=== PATIENT | female | born 1945 | race Two or more races ===

== ENCOUNTER → 2021-09-17 | Outpatient (CLI) | payer OTHER | END | disposition home or self-care (01) | LOC: XYW 13:57 | PROVIDERS: ATTEND Internal Medicine Pulmonary Disease | DX: I08.8 Other rheumatic multiple valve diseases (principal); I50.9 Heart failure, unspecified | CPT/HCPCS: 93306 ==

== ENCOUNTER 2025-02-15 09:47 | Inpatient (IN) | payer OTHER ==
[2025-02-15] VITALS (8 sets, daily range): BP systolic 106–142; BP diastolic 66–78; PULSE 77–99; RESP 14–32; TEMP 97.7–99; O2SAT 93–100
[~2025-02-15] VITALS: Ht 154.9 cm; Wt 86.0 kg
--- NOTE | 2025-02-15 10:19 | ECG ---
[facility] Test Date: 2025-02-15 Test Time: 09:59:54 Pat Name: PREET BANSAL Department: ED Room: 0290T Gender: F Administrative Services Specialist: JUSTYN : 1945 Requested By: MOISES ROBLES Order Number: [id number] Reading MD: Radu Torres Measurements Intervals [place] Rate: 113 P: 0 DC: 0 QRS: 17 QRSD: 101 T: 91 QT: 391 QTc: 537 Interpretive Statements Atrial fibrillation Anterior infarct, old Nonspecific T abnormalities, lateral leads Prolonged QT interval Electronically Signed On 02-16-2025 17:04:31 PST by Radu Torres Please click the below link to view image of tracing.
--- NOTE | 2025-02-15 10:24 | ED.PDOC ---
SOB-HPI HPI Comments This is a 79 year old female BRUNOA presenting to the ED with chief complaint of SOB. Patient reports that she has been experiencing SOB for the past 2 days with associated wheezing and worsening SOB at 8am. EMS relays that the patient was 82% O2 at RA, up to 92% on 15L Non-rebreather, and then up to 97% after a DuoNeb breathing treatment. EMS states patient had a 911 call last night as well for a fall while on blood thinner Xarelto, but no trauma was noted and patient was not transported. Patient denies any chest pain, cough, fever, or chills. Chief Complaint: Shortness of Breath Time Seen by MD: 10:22 Reviewed notes: Nurses Notes, Ultrasound Tester Notes, Medications, Allergies Information Source: Patient, Emergency Med Personnel Mode of Arrival: EMS Severity: Severe Timing: Days Duration: Since onset Context: At Rest PE Risk Factors: None History of: None Prehospital treatment: Breathing Tx, Oxygen Modifying Factors: Nothing Associated Signs and Symptoms: None Past Medical History PAST MEDICAL HISTORY: AFIB Surgical History: Denies all surgeries OIL FIELD RIG BUILDER History: Denies all OIL FIELD RIG BUILDER Hx Family History Family History: Reviewed,noncontributory to illness Social History Smoker: Non-Smoker Alcohol: Denies ETOH Use Drugs: Denies Drug Use Lives In: Home Constitutional: denies: chills, diaphoresis, fatigue, fever, malaise, sweats, weakness, others EENTM: denies: blurred vision, double vision, ear bleeding, ear discharge, ear drainage, ear pain, ear ringing, eye pain, eye redness, hearing loss, mouth pain, mouth swelling, nasal discharge, nose bleeding, nose congestion, nose pain, photophobia, tearing, throat pain, throat swelling, voice changes, others Respiratory: reports: shortness of breath, SOB with excertion, wheezing; denies: cough, hemoptysis, orthopnea, SOB at rest, stridor, others Cardiovascular: denies: chest pain, dizzy spells, diaphoresis, Dyspnea on exertion, edema, irregular heart beat, left arm pain, lightheadedness, palpitations, PND, syncope, others Gastrointestinal: denies: abdomen distended, abdominal pain, blood streaked bowels, constipated, diarrhea, dysphagia, difficulty swallowing, hematemesis, melena, nausea, poor appetite, poor fluid intake, rectal bleeding, rectal pain, vomiting, others Genitourinary: denies: abnormal vagina bleeding, burning, dyspareunia, dysuria, flank pain, frequency, hematuria, incontinence, pain, , vagina discharge, urgency, others Neurological: denies: dizziness, fainting, headache, left sided numbness, left sided weakness, numbness, paresthesia, pre-existing deficit, right sided numbness, right sided weakness, seizure, speech problems, tingling, tremors, weakness, others Musculoskeletal: denies: back pain, gout, joint pain, joint swelling, muscle pain, muscle stiffness, neck pain, others Integumetry: denies: bruises, change in color, change in hair/nails, dryness, laceration, lesions, lumps, rash, wounds, others Allergic/Immunocompromised: denies: Difficulty Healing, Frequent Infections, Hives, Itching, others Hematologic/Lymphatic: denies: anemia, blood clots, easy bleeding, easy bruising, swollen glands, others Endocrine: denies: excessive hunger, excessive sweating, excessive thirst, excessive urination, flushing, intolerance to cold, intolerance to heat, unexplained weight gain, unexplained weight loss, others Psychiatric: denies: anxiety, bipolar disorder, depression, hopeless, panic disorder, schizophrenia, sleepless, suicidal, others All Other Systems: Reviewed and Negative Physical Exam General Appearance: Normal, Severe Distress HEENT: Normal ENT Inspection, Pharynx Normal, TMs Normal Neck: Full Range of Motion, Non-Tender, Normal, Normal Inspection Respiratory: Chest Non-Tender, No Accessory Muscle Use, Respiratory Distress, Rhonchi Cardiovascular: No Edema, No JVD, No Murmur, No Gallop, Normal Peripheral Pulses, Regular Rate/Rhythm Breast Exam: Deferred Gastrointestinal: No Organomegaly, Non Tender, No Pulsatile Mass, Normal Bowel Sounds, Soft Genitalia: Deferred Pelvic: Deferred Rectal: Deferred Extremities: No calf tenderness, Normal capillary refill, Normal inspection, Normal range of motion, Non-tender, No pedal edema Musculoskeletal : Apperance: Normal Neurologic: Alert, armhole feller handstitching machine II-XII nml as Tested, No Motor Deficits, Normal Affect, Normal Mood, No Sensory Deficits Cerebellar Function: NOT DONE Reflexes: NOT DONE Skin: Dry, Normal Color, Warm Peripheral Pulses: 3+ Radial (R), 3+ Radial (L) Lymphatic: No Adenopathy EKG EKG : Cardiac Rhythm: Afib, Aflutter Was a procedure done? Was a procedure done?: No Differential Dx Differential Diagnosis: Anxiety, Asthma, Bronchitis, CHF, COPD X-Ray, Labs, Meds, VS Vital Signs Date Time Temp Pulse Resp B/P (MAP) Pulse Ox O2 Delivery O2 Flow Rate FiO2 02/15/25 10:43 125/59 02/15/25 10:01 113 02/15/25 09:49 98.9 101 20 152/82 97 98.9 Lab Test 02/15/25 10:29 Range/Units White Blood Count 5.3 4.4-10.8 10^3/uL Red Blood Count 3.51 L 4.0-5.20 10^6/uL Hemoglobin 12.3 12.2-16.2 g/dL Hematocrit 36.7 36.0-46.0 % Mean Corpuscular Volume 104.6 H 80.0-100.0 fL Mean Corpuscular Hemoglobin 35.1 H 28.0-32.0 pg Mean Corpuscular Hemoglobin Concent 33.5 32.0-36.0 g/dL Red Cell Distribution Width 15.4 H 11.8-14.3 % Platelet Count 152 140-450 10^3/uL Mean Platelet Volume 6.9 6.9-10.8 fL Neutrophils (%) (Auto) 74.3 37.0-80.0 % Lymphocytes (%) (Auto) 14.6 10.0-50.0 % Monocytes (%) (Auto) 9.3 0.0-12.0 % Eosinophils (%) (Auto) 0.9 0.0-7.0 % Basophils (%) (Auto) 0.9 0.0-2.0 % Neutrophils # (Auto) 3.9 1.6-8.6 10 ^3/uL Lymphocytes # (Auto) 0.8 0.4-5.4 10 ^3/uL Monocytes # (Auto) 0.5 0-1.3 10 ^3/uL Eosinophils # (Auto) 0 0-0.8 10 ^3/uL Basophils # (Auto) 0 0-0.2 10 ^3/uL Nucleated Red Blood Cells 0.0 % Sodium Level Pending Potassium Level Pending Chloride Level Pending Carbon Dioxide Level Pending Anion Gap Pending Blood Urea Nitrogen Pending Creatinine Pending Glomerular Filtration Rate Calc Pending BUN/Creatinine Ratio Pending Serum Glucose Pending Calcium Level Pending B-Type Natriuretic Peptide Pending Current Medications Medications (Trade) Dose Ordered Sig/Cindi Route Start Time Stop Time Status Last Admin Furosemide (Lasix Injection) 40 mg ONCE ONCE IV 02/15/25 10:15 02/15/25 10:16 DC 02/15/25 10:43 Patient alert. Answering questions. Complaining of shortness a breath. Placed on 15 L oxygen. Possible CHF. Was given Lasix. EKG does show atrial fibrillation. Placed on amiodarone. Explained to the patient. Continue monitoring. Time of 1ST Reevaluation: 11:20 Reevaluation 1ST: Unchanged Patient Education/Counseling: Diagnosis, Treatment Family Education/Counseling: No Family Present SEPSIS Sepsis Screen Date sepsis recognized/suspect: Feb 15, 2025 Time Sepsis recognized/suspect: 947 Recent Procedure: No On Antibiotic Therapy: No Respiratory Rate >20: No Heart Rate >90: Yes Temp<36 C (96.8 F) or >38.3 C: No SBP <90 or MAP <65 mmHG: No New Acute Mental Status Change: No Is the patient on CPAP, BIPAP,: No Physician Orders B-Type Natriuretic Peptide (02/15/25 10:13) Chest Portable (02/15/25 10:13) Urinalysis (02/15/25 10:13) Basic Metabolic Panel (02/15/25 10:13) Sodium Chloride 0.9% (02/15/25 10:15) Vital Signs Date Time Temp Pulse Resp B/P (MAP) Pulse Ox O2 Delivery O2 Flow Rate FiO2 02/15/25 10:43 125/59 02/15/25 10:01 113 02/15/25 09:49 98.9 101 20 152/82 97 98.9 Laboratory Tests Test 02/15/25 10:29 White Blood Count 5.3 10^3/uL (4.4-10.8) Medications Medications Dose Ordered Sig/Cindi Route Start Time Stop Time Status Last Admin Dose Admin Furosemide 40 mg ONCE ONCE IV 02/15/25 10:15 02/15/25 10:16 DC 02/15/25 10:43 Departure 1 Departure Time of Disposition: 10:54 Impression: Primary Impression: Congestive heart failure Qualified Codes: I50.43 - Acute on chronic combined systolic (congestive) and diastolic (congestive) heart failure Additional Impression: Atrial fibrillation Qualified Codes: I48.0 - Paroxysmal atrial fibrillation Disposition: ADMITTED INPATIENT Admit to: Med Surg Condition: Guarded Critical Care Note Critical Care Time?: Yes (90 min-critical care time only) Stability Stability form required: No Heart Score Heart Score: Heart Score Response (Comments) Value History Slightly Suspicious 0 EKG Normal 0 Age >65 2 Risk Factors >3 or Hx ASHD 2 Troponin Normal limit 0 Total 4 I personally scribed for MOISES ROBLES MD ([email or web address]) on 02/15/25 at 10:24. Electronically submitted by Mata Murdock ([email or web address]). MOISES ROBLES MD Feb 15, 2025 10:24
[2025-02-15] MEDS: FUROSEMIDE 40 MG/4 ML VIAL IV ONE (10:43)
[2025-02-15 10:46] LABS: Hematocrit 36.7 % (36.0-46.0); Hemoglobin 12.3 g/dL (12.2-16.2); Mean Corpuscular Hemoglobin 35.1 pg (28.0-32.0); Mean Corpuscular Volume 104.6 fL (80.0-100.0); Nucleated Red Blood Cells % 0.0 %
[2025-02-15 10:53] LABS: Chloride 102 mmol/L (98-107); Potassium 4.1 mmol/L (3.5-5.1)
[2025-02-15 10:54] LABS: Anion Gap 14 (5-15)
[2025-02-15 10:55] LABS: Calcium 9.3 mg/dL (8.7-10.4)
[2025-02-15 10:57] LABS: Carbon Dioxide 20 mmol/L (20-31); Sodium 136 mmol/L (136-145)
[2025-02-15 10:59] LABS: BUN/Creatinine Ratio 17.2 (10.0-20.0); Blood Urea Nitrogen 11 mg/dL (9-23)
[2025-02-15 11:00] LABS: Glucose 140 mg/dL (74-106)
--- NOTE | 2025-02-15 11:15 | DVH ---
EXAM: XY CHEST PORTABLE Indication: sob Technique: Single frontal view of the chest was obtained Comparison: None FINDINGS: Lines and Tubes: None Lungs: Moderate bilateral pleural effusions and pulmonary edema. Bibasilar opacities. No pneumothorax. Cardiomediastinal contours: Cardiomegaly. Atherosclerotic vascular calcifications of the thoracic aorta are noted. Bones: No acute osseous abnormality. IMPRESSION: Moderate bilateral pleural effusions and pulmonary edema. Bibasilar opacities. Cardiomegaly.
[2025-02-15] MEDS: IPRATROPIUM BROM 0.5 MG/2.5ML INH SOL NEB ONE (12:36)
[2025-02-15] MEDS: ALBUTEROL SULF 2.5 MG/0.5ML(0.5%) NEB SOLN NEB ONE (12:36)
[2025-02-15] MEDS: SODIUM CHLORIDE 0.9% 1,000 ML IV ONE (12:39)
[2025-02-15 13:03] LABS: Urine Protein, UAD Negative (Negative)
[2025-02-15] MEDS ORDERED: DOCUSATE SOD 100 MG CAP PO PRN (13:15)
[2025-02-15] MEDS ORDERED: MORPHINE SULFATE INJ 2 MG/ml SYRG IV PRN (13:15)
[2025-02-15] MEDS ORDERED: NITROGLYCERIN 0.4 MG SL TAB SL PRN (13:15)
[2025-02-15] MEDS ORDERED: ONDANSETRON HCL 4 MG/2 ML VIAL IV PRN (13:15)
[2025-02-15] MEDS ORDERED: MORPHINE SULFATE 4 MG/ML SYR/VIAL IV PRN (13:15)
[2025-02-15] MEDS ORDERED: HYDROcodone-ACET 5/325MG TAB PO PRN (13:15)
--- NOTE | 2025-02-15 13:43 | DVHHP2 ---
History of Present Illness Reason for Visit: Brought in by paramedics with the increasing shortness a breath 1 day History of Present Illness 79-year-old female with a known history of chronic AFib currently on beta marciano and Xarelto, hypertension, COPD/asthma, dyslipidemia, dementia who was brought in by paramedics with shortness of breaths for one day. Patient has stated that she was short of breath worsening since morning eventually she called paramedics the found are in O2 saturation 80s started on 15 L of facemask currently on nasal cannula. Patient does have known history of COPD/asthma as well as congestive heart failure. Patient's chest x-ray shows pulmonary venous congestion with a moderate bilateral pleural effusion. Patient is being admitted for acute CHF exacerbation as well as acute hypoxic respiratory failure secondary to acute CHF exacerbation. As well as acute COPD/asthma exacerbation. Patient denies any chest pain denies any palpitations. Cardiovascular: AFIB, CHF, HTN, hyperipidemia Pulmonary: Asthma, COPD UNDER GROUND MINER: Dementia Past Surgical History: Appendectomy, Hysterectomy, Total knee replacement Family History: None Smoke: No ALCOHOL: none Review of Systems Review of Systems Twelve review of system are negative besides mentioned above. Allergies: Coded Allergies: NO KNOWN ALLERGIES (Unverified , 02/15/25) Medications Current Medications Medications Dose Ordered Sig/Cindi Route Start Time Stop Time Status Last Admin Dose Admin Acetaminophen/ Hydrocodone Bitart 1 tab Q4HP PRN PO 02/15/25 13:15 UNV Ondansetron HCl 4 mg Q4HP PRN IV 02/15/25 13:15 UNV Docusate Sodium 100 mg BIDPRN PRN PO 02/15/25 13:15 UNV Acetaminophen 650 mg Q6HP PRN PO 02/15/25 13:15 UNV Morphine Sulfate 2 mg Q4HPRN PRN IV 02/15/25 13:15 UNV Nitroglycerin 0.4 mg Q5MINP PRN SL 02/15/25 13:15 UNV Morphine Sulfate 2 mg Q30M PRN IV 02/15/25 13:15 UNV Furosemide 40 mg BIDD IV 02/15/25 18:00 UNV Albuterol 2.5 mg Q4HWA NEB 02/15/25 14:00 UNV Ipratropium [place] 0.5 mg Q4HWA NEB 02/15/25 14:00 UNV Metoprolol Tartrate 25 mg BID PO 02/15/25 13:30 UNV Patient Own Medication 20 mg DAILY@DINNER PO 02/15/25 17:30 UNV Exam Vital Signs Vital Signs Date Time Temp Pulse Resp B/P (MAP) Pulse Ox O2 Delivery O2 Flow Rate FiO2 02/15/25 10:43 125/59 02/15/25 10:03 98 Simple Mask* 10 99 02/15/25 10:03 97.7 99 32 97.7 Exam HEENT pupils are reactive Neck is supple CV is S1-S2 irregular regular rate and rhythm Respiratory bilateral diminished breath sounds lung bases GI positive bowel sound Extremity nonpitting edema with a some heartburn and redness skin in the lower legs. Labs/Xrays Labs Test 02/15/25 11:38 02/15/25 10:29 Range/Units Urine Color Colorless Yellow Urine Clarity Clear Clear Urine pH 6.5 5.0-9.0 Urine Specific [place] 1.006 1.001-1.035 Urine Protein Negative Negative Urine Ketones Negative Negative Urine Blood Negative Negative /uL Urine Nitrite Negative Negative Urine Bilirubin Negative Negative Urine Urobilinogen Normal Negative mg/dL Urine Leukocyte Esterase Negative Negative /uL Urine RBC <1 0 - 4 /hpf Urine Microscopic WBC < 1 0-5 /HPF Urine Squamous Epithelial Cells Few <5 /hpf Urine Bacteria None seen None Seen /hpf Urine Glucose Normal Normal mg/dL White Blood Count 5.3 4.4-10.8 10^3/uL Red Blood Count 3.51 L 4.0-5.20 10^6/uL Hemoglobin 12.3 12.2-16.2 g/dL Hematocrit 36.7 36.0-46.0 % Mean Corpuscular Volume 104.6 H 80.0-100.0 fL Mean Corpuscular Hemoglobin 35.1 H 28.0-32.0 pg Mean Corpuscular Hemoglobin Concent 33.5 32.0-36.0 g/dL Red Cell Distribution Width 15.4 H 11.8-14.3 % Platelet Count 152 140-450 10^3/uL Mean Platelet Volume 6.9 6.9-10.8 fL Neutrophils (%) (Auto) 74.3 37.0-80.0 % Lymphocytes (%) (Auto) 14.6 10.0-50.0 % Monocytes (%) (Auto) 9.3 0.0-12.0 % Eosinophils (%) (Auto) 0.9 0.0-7.0 % Basophils (%) (Auto) 0.9 0.0-2.0 % Neutrophils # (Auto) 3.9 1.6-8.6 10 ^3/uL Lymphocytes # (Auto) 0.8 0.4-5.4 10 ^3/uL Monocytes # (Auto) 0.5 0-1.3 10 ^3/uL Eosinophils # (Auto) 0 0-0.8 10 ^3/uL Basophils # (Auto) 0 0-0.2 10 ^3/uL Nucleated Red Blood Cells 0.0 % Sodium Level 136 136-145 mmol/L Potassium Level 4.1 3.5-5.1 mmol/L Chloride Level 102 98-107 mmol/L Carbon Dioxide Level 20 20-31 mmol/L Anion Gap 14 5-15 Blood Urea Nitrogen 11 9-23 mg/dL Creatinine 0.64 0.550-1.02 mg/dL Glomerular Filtration Rate Calc 90 >90 mL/min BUN/Creatinine Ratio 17.2 10.0-20.0 Serum Glucose 140 H 74-106 mg/dL Calcium Level 9.3 8.7-10.4 mg/dL B-Type Natriuretic Peptide 312.36 0-100 pg/mL SEPSIS Sepsis Screen Date sepsis recognized/suspect: Feb 15, 2025 Time Sepsis recognized/suspect: 1000 Recent Procedure: No On Antibiotic Therapy: No Respiratory Rate >20: Yes Heart Rate >90: Yes Temp<36 C (96.8 F) or >38.3 C: No SBP <90 or MAP <65 mmHG: No New Acute Mental Status Change: No Is the patient on CPAP, BIPAP,: No Physician Orders Chest Portable (02/15/25 10:13) Sodium Chloride 0.9% (02/15/25 10:15) Code Status (02/15/25 13:13) Hydrocodone-Acet 5/325mg Tab ([place] (02/15/25 13:15) Ondansetron Hcl (Zofran) (02/15/25 13:15) Docusate Sodium Capsule (Colace Capsule) (02/15/25 13:15) Fall Risk Precautions In Place QSHIFT (02/15/25 13:13) Cardiac Diet-2gna,Lofat,Lochol (02/15/25 Lunch) Pt Request For Service (02/15/25 13:13) Echo 2d Mode Cardiac Dop (02/15/25 13:13) Condition: Stable (02/15/25 13:13) Acetaminophen Tablet (Tylenol Tablet) (02/15/25 13:15) Morphine Sulfate Injection (02/15/25 13:15) Nitroglycerin Sublingual (Ntrostat Subli (02/15/25 13:15) Morphine Sulfate Injection (02/15/25 13:15) Stat Ekg For Chest Pain (02/15/25 13:13) Notify Md Of Changes From Base (02/15/25 13:13) Radioactive Waste Disposal Dispatcher For 24 Hours (02/15/25 13:13) Emergency Dysrhythmia Protocol (02/15/25 13:13) Rhythm Strips Once Every Shift (02/15/25 13:13) Oxygen By Nasal Cannula (02/15/25 13:13) Furosemide Injection (Lasix Injection) (02/15/25 18:00) * Cardiology Consult (02/15/25 13:13) Albuterol Medneb (Ventolin Medneb) (02/15/25 14:00) Ipratropium Medneb (Atrovent Medneb) (02/15/25 14:00) * Radiologist Consult (02/15/25 13:13) * Neurology Consult (02/15/25 13:13) Daily Weight (02/15/25 13:13) Strict I & O QSHIFT (02/15/25 13:13) Basic Metabolic Panel (02/16/25 06:00) Complete Blood Count (02/16/25 06:00) Magnesium (02/16/25 06:00) Prothrombin Time W/ Inr (02/15/25 13:13) Metoprolol Tartrate Tablet (Lopressor Ta (02/15/25 13:30) (Nf) Xarelto (02/15/25 17:30) Admit (02/15/25 13:28) Methylprednisolone Sod Succ (Solu Medrol (02/15/25 22:00) Vital Signs Date Time Temp Pulse Resp B/P (MAP) Pulse Ox O2 Delivery O2 Flow Rate FiO2 02/15/25 10:43 125/59 02/15/25 10:03 98 Simple Mask* 10 99 02/15/25 10:03 97.7 99 32 106/66 (79) 98 97.7 02/15/25 10:03 99 32 98 Simple Mask* 10 99 02/15/25 10:01 113 02/15/25 09:49 98.9 101 20 152/82 97 98.9 Laboratory Tests Test 02/15/25 10:29 White Blood Count 5.3 10^3/uL (4.4-10.8) Medications Medications Dose Ordered Sig/Cindi Route Start Time Stop Time Status Last Admin Dose Admin Albuterol 5 mg ONCE ONCE NEB 02/15/25 12:15 02/15/25 12:16 DC 02/15/25 12:36 5 MG Furosemide 40 mg ONCE ONCE IV 02/15/25 10:15 02/15/25 10:16 DC 02/15/25 10:43 40 MG Ipratropium [place] 0.5 mg ONCE ONCE NEB 02/15/25 12:15 02/15/25 12:16 DC 02/15/25 12:36 0.5 MG Assessment/Plan Assessment/Plan 79-year-old female with a known history of chronic AFib, congestive heart failure, COPD/asthma, hypertension, dementia presented to the hospital with the increasing shortness of breaths found to have 1. Acute hypoxic respiratory failure secondary to acute CHF exacerbation as well as acute COPD/asthma exacerbation 2. Acute CHF exacerbation unspecified 3. Acute COPD/asthma exacerbation 4. AFib with rate controlled 5. Hypertension 6. Essential tremors 7. Alzheimer dementia -admit to telemetry, O2 supplementation, med nebs, Solu-Medrol, IV diuretics daily weights strict I&Os -2D echo cardiology consultation we will obtain Neurology consult for tremors. Plan discussed with: Patient My Orders Orders - DEEJAY PEREZ MD Procedure Category Date Status Time Code Status CODE 02/15/25 Transmitted 13:13 Hydrocodone-Acet PHA 02/15/25 Logged 5/325mg Tab ([place] 13:15 Ondansetron Hcl PHA 02/15/25 Logged (Zofran) 13:15 Docusate Sodium PHA 02/15/25 Logged Capsule (Colace 13:15 Fall Risk Precautions NADEEM 02/15/[address] 13:13 Cardiac DIET 02/15/25 Transmitted Diet-2gna,Lofat,Lochol Lunch Pt Request For Service PT 02/15/25 Logged 13:13 Echo 2d Mode Cardiac US 02/15/25 Logged DOP 13:13 Condition: Stable NADEEM 02/15/25 In Process 13:13 Acetaminophen Tablet PHA 02/15/25 Logged (Tylenol Tablet) 13:15 Morphine Sulfate PHA 02/15/25 Logged Injection 13:15 Nitroglycerin PHA 02/15/25 Logged Sublingual (Ntrostat 13:15 Morphine Sulfate PHA 02/15/25 Logged Injection 13:15 Stat Ekg For Chest NADEEM 02/15/25 In Process Pain 13:13 Notify Md Of Changes [facility] 02/15/25 In Process From Base 13:13 Radioactive Waste Disposal Dispatcher For [facility] 02/15/25 In Process 24 Hours 13:13 Emergency Dysrhythmia [facility] 02/15/25 In Process Protocol 13:13 Rhythm Strips Once [facility] 02/15/25 In Process Every Shift 13:13 Oxygen By Nasal RT 02/15/25 Transmitted Cannula 13:13 Furosemide Injection PHA 02/15/25 Logged (Lasix Injection) 18:00 * Cardiology Consult CONS 02/15/25 Transmitted 13:13 Albuterol Medneb PHA 02/15/25 Logged (Ventolin Medneb) 14:00 Ipratropium Medneb PHA 02/15/25 Logged (Atrovent Medneb) 14:00 * Radiologist Consult CONS 02/15/25 Transmitted 13:13 * Neurology Consult CONS 02/15/25 Transmitted 13:13 Daily Weight NADEEM 02/15/25 In Process 13:13 Strict I & O [place] 02/15/25 In Process 13:13 Basic Metabolic Panel LAB 02/16/25 Verified 06:00 Complete Blood Count LAB 02/16/25 Verified 06:00 Magnesium LAB 02/16/25 Verified 06:00 Prothrombin Time W/ LAB 02/15/25 In Process INR 13:13 Metoprolol Tartrate PHA 02/15/25 Logged Tablet (Lopressor Ta 13:30 (Nf) Xarelto PHA 02/15/25 Logged 17:30 Admit ADMIT 02/15/25 Transmitted 13:28 Methylprednisolone PHA 02/15/25 Logged Sod Succ (Solu Medrol 22:00 Problem List: (1) Congestive heart failure (2) Atrial fibrillation Date of Service: Feb 15, 2025 Billing Provider: DEEJAY PEREZ MD Common Visit Codes: NOT BILLABLE DEEJAY PEREZ MD Feb 15, 2025 13:43
[2025-02-15] MEDS: IPRATROPIUM BROM 0.5 MG/2.5ML INH SOL NEB SCH (13:55)
[2025-02-15] MEDS: ALBUTEROL SULF 2.5 MG/0.5ML(0.5%) NEB SOLN NEB SCH (13:55)
[2025-02-15] MEDS: methylPREDNISolone SOD SUCC 40 MG/ML VL IV SCH (14:20)
--- NOTE | 2025-02-15 14:20 | DVH ---
US CHEST ULTRASOUND, HISTORY: evaluate for possible thoracentesis, bilateral COMPARISON(S): XY CHEST PORTABLE on DOS: 02/15/25 TECHNICAL DATA: Transverse and longitudinal images are obtained of the chest. FINDING: IMPRESSION(S): Small (possibly moderate) bilateral pleural effusion, equal on both sides.
[2025-02-15] MEDS: METOPROLOL TARTRATE 25 MG TAB PO SCH (14:21)
[2025-02-15 14:31] LABS: INR 1.63 (0.9-1.15); Prothrombin Time 16.5 sec (9.3-11.8)
[2025-02-15] MEDS: RIVAROXABAN 20 MG TAB PO SCH (17:05)
[2025-02-15] MEDS: FUROSEMIDE 40 MG/4 ML VIAL IV SCH (19:06)
[2025-02-15] MEDS: ACETAMINOPHEN 325 MG TAB PO PRN (21:13)
[2025-02-16] VITALS (15 sets, daily range): BP systolic 112–143; BP diastolic 65–79; PULSE 69–104; RESP 16–20; TEMP 97.5–98.7; O2SAT 91–99
[2025-02-16 05:47] LABS: Hematocrit 35.3 % (36.0-46.0); Hemoglobin 12.1 g/dL (12.2-16.2); Mean Corpuscular Hemoglobin 35.1 pg (28.0-32.0); Mean Corpuscular Volume 102.6 fL (80.0-100.0); Nucleated Red Blood Cells % 0.0 %
[2025-02-16 05:51] LABS: Chloride 100 mmol/L (98-107); Sodium 138 mmol/L (136-145)
[2025-02-16 05:52] LABS: Anion Gap 13 (5-15); Calcium 9.4 mg/dL (8.7-10.4); Carbon Dioxide 25 mmol/L (20-31)
[2025-02-16 05:55] LABS: Potassium 3.4 mmol/L (3.5-5.1)
[2025-02-16 05:57] LABS: BUN/Creatinine Ratio 10.4 (10.0-20.0)
[2025-02-16 05:58] LABS: Blood Urea Nitrogen 7 mg/dL (9-23); Glucose 176 mg/dL (74-106); Magnesium 1.9 mg/dL (1.6-2.6)
--- NOTE | 2025-02-16 12:54 | DVHINCON2 ---
Date Seen: Feb 16, 2025 Referring Physician MD Prema Reason for Consultation Acute CHF exacerbation History of Present Illness This is a 79-year-old female patient who presents to emergency room with chief complaint of worsening shortness of breath for 2 hours prior to emergency room arrival. Cardiology has been consulted at this time for CHF evaluation. Initial twelve lead electrocardiogram found in patient's hard chart reveals atrial fibrillation with artifact in multiple leads. compliance monitor at time of assessment reveals atrial fibrillation with controlled rate. At the time of assessment, the patient denies any cardiac symptoms such as chest pain, palpitations, shortness of breath, or dizziness. Significant past medical history includes hypertension, dyslipidemia, atrial fibrillation (on Xarelto), and dementia. The patient reports undergoing a coronary angiogram approximately five years ago at [facility] and states no catheter based intervention was deemed necessary at that time. 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 Past Medical History Past medical history reviewed. No other significant than mentioned above. Past Surgical History Appendectomy Family History: Colon cancer G8 FATHER Hypertension 19 CHILD 19 CHILD 19 CHILD Family History Family history reviewed. Social History The patient denies any tobacco use or illicit drug use Patient admits to daily alcohol. States she drinks 3-4 glasses of bourbon per day Allergies: Coded Allergies: NO KNOWN ALLERGIES (Unverified , 02/15/25) Home Meds Home medications reviewed. Current Medications Current Medications Medications (Trade) Dose Ordered Sig/Cindi Route PRN Reason Start Time Stop Time Status Last Admin Acetaminophen/ Hydrocodone Bitart ([place] 5/325MG Tab) 1 tab Q4HP PRN PO MODERATE PAIN (4-6 PAIN SCALE) 02/15/25 13:15 Ondansetron HCl (Zofran) 4 mg Q4HP PRN IV NAUSEA / VOMITING 02/15/25 13:15 Docusate Sodium (Colace Capsule) 100 mg BIDPRN PRN PO FOR CONSTIPATION 02/15/25 13:15 Acetaminophen (Tylenol Tablet) 650 mg Q6HP PRN PO PAIN SCALE 1-3 OR TEMP>100.4 02/15/25 13:15 02/15/25 21:13 Morphine Sulfate 2 mg Q4HPRN PRN IV SEVERE PAIN (7-10 PAIN SCALE) 02/15/25 13:15 Nitroglycerin (Ntrostat Sublingual) 0.4 mg Q5MINP PRN SL FOR CHEST PAIN 02/15/25 13:15 Morphine Sulfate 2 mg Q30M PRN IV FOR CHEST PAIN 02/15/25 13:15 Furosemide (Lasix Injection) 40 mg BIDD IV 02/15/25 18:00 02/16/25 06:04 Albuterol (Ventolin Medneb) 2.5 mg Q4HWA [facility] 02/15/25 14:00 02/16/25 10:39 Ipratropium [place] (Atrovent Medneb) 0.5 mg Q4HWA [facility] 02/15/25 14:00 02/16/25 10:40 Metoprolol Tartrate (Lopressor Tablet) 25 mg BID PO 02/15/25 13:30 02/16/25 09:35 Rivaroxaban (Xarelto Tablet) 20 mg DAILY@DINNER PO 02/15/25 17:30 02/15/25 17:05 Methylprednisolone Sodium Succinate (Solu Medrol) 40 mg BID IV 02/15/25 13:38 02/16/25 09:35 Review of Systems Constitutional: No symptom reported Ears, Nose, & Throat: No symptom reported Eyes: No symptom reported Neurological: No symptoms reported Pulmonary/Respiratory: Shortness of breath Cardiovascular: No symptom reported Gastrointestinal: No symptom reported Genitourinary: No symptom reported Musculoskeletal: No symptom reported Skin: No symptom reported Psychiatric: No symptom reported Endocrine: No symptom reported Hematologic/Lymphatic: No symptom reported Vital Signs Vital Signs Date Time Temp Pulse Resp B/P (MAP) Pulse Ox O2 Delivery O2 Flow Rate FiO2 02/16/25 10:44 85 18 99 02/16/25 09:35 124/65 02/16/25 09:00 98.1 98.1 02/16/25 08:20 Nasal Cannula* 3 32 Physical Exam General Appearance: Cooperative. Well-developed. Well-nourished. No acute distress. Pulmonary/Respiratory: Clear, bilateral breaths sounds. Cardiovascular/Chest: Irregularly irregular rate and rhythm Peripheral Pulses: 2+ Radial (R). 2+ Radial (L). 2+ Pedal (R). 2+ Pedal (L) Abdominal Exam: Normal bowel sounds. Ankle Exam: 2+ pitting edema Lower extremities: 2+ pitting edema Neuro/Mental Status: A/OX4, coherent. Thoughts/Psych: Normal thought pattern. Appropriate mood and affect. Good judgment and insight. Appearance: No acute distress. Skin Exam: Normal inspection. Normal color. Warm and dry. Labs/Diagnostic Data Labs Test 02/16/25 04:58 02/15/25 14:07 02/15/25 11:38 02/15/25 10:29 Range/Units White Blood Count 2.0 L 4.4-10.8 10^3/uL Red Blood Count 3.44 L 4.0-5.20 10^6/uL Hemoglobin 12.1 L 12.2-16.2 g/dL Hematocrit 35.3 L 36.0-46.0 % Mean Corpuscular Volume 102.6 H 80.0-100.0 fL Mean Corpuscular Hemoglobin 35.1 H 28.0-32.0 pg Mean Corpuscular Hemoglobin Concent 34.2 32.0-36.0 g/dL Red Cell Distribution Width 15.3 H 11.8-14.3 % Platelet Count 151 140-450 10^3/uL Mean Platelet Volume 7.2 6.9-10.8 fL Neutrophils (%) (Auto) 88.6 H 37.0-80.0 % Lymphocytes (%) (Auto) 10.2 10.0-50.0 % Monocytes (%) (Auto) 1.1 0.0-12.0 % Eosinophils (%) (Auto) 0.0 0.0-7.0 % Basophils (%) (Auto) 0.1 0.0-2.0 % Neutrophils # (Auto) 1.8 1.6-8.6 10 ^3/uL Lymphocytes # (Auto) 0.2 L 0.4-5.4 10 ^3/uL Monocytes # (Auto) 0 0-1.3 10 ^3/uL Eosinophils # (Auto) 0 0-0.8 10 ^3/uL Basophils # (Auto) 0 0-0.2 10 ^3/uL Nucleated Red Blood Cells 0.0 % Sodium Level 138 136-145 mmol/L Potassium Level 3.4 L 3.5-5.1 mmol/L Chloride Level 100 98-107 mmol/L Carbon Dioxide Level 25 20-31 mmol/L Anion Gap 13 5-15 Blood Urea Nitrogen 7 L 9-23 mg/dL Creatinine 0.67 0.550-1.02 mg/dL Glomerular Filtration Rate Calc 89 >90 mL/min BUN/Creatinine Ratio 10.4 10.0-20.0 Serum Glucose 176 H 74-106 mg/dL Calcium Level 9.4 8.7-10.4 mg/dL Magnesium Level 1.9 1.6-2.6 mg/dL Prothrombin Time 16.5 H 9.3-11.8 sec Prothrombin Time INR 1.63 H 0.9-1.15 Urine Color Colorless Yellow Urine Clarity Clear Clear Urine pH 6.5 5.0-9.0 Urine Specific [place] 1.006 1.001-1.035 Urine Protein Negative Negative Urine Ketones Negative Negative Urine Blood Negative Negative /uL Urine Nitrite Negative Negative Urine Bilirubin Negative Negative Urine Urobilinogen Normal Negative mg/dL Urine Leukocyte Esterase Negative Negative /uL Urine RBC <1 0 - 4 /hpf Urine Microscopic WBC < 1 0-5 /HPF Urine Squamous Epithelial Cells Few <5 /hpf Urine Bacteria None seen None Seen /hpf Urine Glucose Normal Normal mg/dL B-Type Natriuretic Peptide 312.36 0-100 pg/mL Assessment Rule out structural heart disease Hypertension Dyslipidemia Atrial fibrillation, unspecified (on Xarelto) Acute hypoxic respiratory failure secondary to COPD/asthma exacerbation Bilateral pleural effusions Hypokalemia Dementia Alcohol abuse Obese Plan/Recommendation We will continue with the following plan/recommendations (): * Transthoracic echocardiogram to evaluate cardiac function * [place] heart failure diagnostic criteria: Positive * Strict intake and output, daily weights, maintain fluid restriction * Diuresis as tolerated * [id number] VASc score: * Continue DOAC therapy with Xarelto * Continue beta-marciano for rate control * Avoid antiarrhythmic agent as atrial fibrillation is likely persistent * Monitor and replete electrolytes as needed, keep potassium greater than four and magnesium greater than two * Continuous telemetry monitoring Thank you for allowing us to care for this patient. Please call with any questions or concerns. Critical care time spent: 44 minutes This medical document was created using an electronic medical record system with voice recognition software and computerized dictation system. Although this document has been carefully reviewed, there might still be some phonetic and typographical errors. Occasional wrong-word or ``sound-alike substitutions may have occurred due to the inherent limitations of voice recognition software. These areas are purely typographical due to imperfections of the software programs and do not reflect any compromise in the patient's medical care. Please read the chart carefully and recognize, using context, where these substitutions have occurred. Plan discussed with: Patient NYHA Physical activity limitations: NA Date of Service: Feb 16, 2025 Billing Provider: DALLIN HORN Cardiology Common Codes: 98578-KBUAJBD INP/OBS CARE (High) Cardiology Consultation Codes: 85262-OEMCGIHOC CONSULT <45MIN DALLIN HORN Feb 16, 2025 12:54
[2025-02-16] MEDS: POTASSIUM CHL 20 Meq TABLET PO ONE (13:44)
[2025-02-16 14:32] LABS: Triglycerides 67 mg/dL (< 150)
--- NOTE | 2025-02-16 14:33 | DVHPN2 ---
Subjective Patient has stated that she has 75% better, denies any shortness of breaths currently on room air. 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 Medications Current Medications Medications Dose Ordered Sig/Cindi Route Start Time Stop Time Status Last Admin Dose Admin Acetaminophen/ Hydrocodone Bitart 1 tab Q4HP PRN PO 02/15/25 13:15 Ondansetron HCl 4 mg Q4HP PRN IV 02/15/25 13:15 Docusate Sodium 100 mg BIDPRN PRN PO 02/15/25 13:15 Acetaminophen 650 mg Q6HP PRN PO 02/15/25 13:15 02/15/25 21:13 650 MG Morphine Sulfate 2 mg Q4HPRN PRN IV 02/15/25 13:15 Nitroglycerin 0.4 mg Q5MINP PRN SL 02/15/25 13:15 Morphine Sulfate 2 mg Q30M PRN IV 02/15/25 13:15 Furosemide 40 mg BIDD IV 02/15/25 18:00 02/16/25 06:04 40 MG Albuterol 2.5 mg Q4HWA NEB 02/15/25 14:00 02/16/25 10:39 2.5 MG Ipratropium [place] 0.5 mg Q4HWA NEB 02/15/25 14:00 02/16/25 10:40 0.5 MG Metoprolol Tartrate 25 mg BID PO 02/15/25 13:30 02/16/25 09:35 25 MG Rivaroxaban 20 mg DAILY@DINNER PO 02/15/25 17:30 02/15/25 17:05 20 MG Methylprednisolone Sodium Succinate 40 mg BID IV 02/15/25 13:38 02/16/25 09:35 40 MG Laboratory Results Laboratory Tests 02/16/25 04:58 Chemistry Test 02/16/25 04:58 Calcium Level 9.4 mg/dL (8.7-10.4) Magnesium Level 1.9 mg/dL (1.6-2.6) Lipid panel Test 02/16/25 04:58 Cholesterol Level Pending HDL Cholesterol Pending Triglycerides Level Pending LFT Test 02/16/25 04:58 Alanine Aminotransferase (ALT) Pending Aspartate Amino Transferase (AST) Pending HgA1c, TSH Test 02/16/25 04:58 Hemoglobin A1c Pending Thyroid Stimulating Hormone (TSH) Pending Urinalysis Test 02/15/25 11:38 Urine Color Colorless (Yellow) Urine Clarity Clear (Clear) Urine pH 6.5 (5.0-9.0) Urine Specific [place] 1.006 (1.001-1.035) Urine Protein Negative (Negative) Urine Ketones Negative (Negative) Urine Blood Negative /uL (Negative) Urine Nitrite Negative (Negative) Urine Bilirubin Negative (Negative) Urine Urobilinogen Normal mg/dL (Negative) Urine Leukocyte Esterase Negative /uL (Negative) Urine RBC <1 /hpf (0 - 4) Urine Microscopic WBC < 1 /HPF (0-5) Urine Squamous Epithelial Cells Few /hpf (<5) Urine Bacteria None seen /hpf (None Seen) Urine Glucose Normal mg/dL (Normal) Assessment/Plan Assessment/Plan 79-year-old female with a known history of chronic AFib, congestive heart failure, COPD/asthma, hypertension, dementia presented to the hospital with the increasing shortness of breaths found to have 1. Acute hypoxic respiratory failure secondary to acute CHF exacerbation as well as acute COPD/asthma exacerbation 2. Acute CHF exacerbation unspecified, follow up 2D echo 3. Acute COPD/asthma exacerbation 4. AFib with rate controlled 5. Hypertension 6. Essential tremors 7. Alzheimer dementia -admit t-O2 supplementation, med nebs, Solu-Medrol, IV diuretics daily weights strict I&Os -2D echo cardiology consultation appreciated. -home health home safety evaluation upon discharge, physical therapy evaluation pending discharge. Plan discussed with: Patient, Daughter Date of Service: Feb 16, 2025 Billing Provider: DEEJAY PEREZ MD Common Visit Codes: NOT BILLABLE DEEJAY PEREZ MD Feb 16, 2025 14:33
[2025-02-16 14:34] LABS: Cholesterol 136 mg/dL (< 200)
[2025-02-16 14:36] LABS: HDL Cholesterol 89 mg/dL (40-59)
[2025-02-16 14:41] LABS: Alanine Aminotransferase 26 U/L (7-40)
--- NOTE | 2025-02-16 17:12 | DVHSR ---
APPROVED REPORT EXAM: Two-dimensional and M-mode echocardiogram with Doppler and color Doppler. Blood Pressure: 125/29 mmHg INDICATION Dyspnea Heart Failure RISK FACTORS Height: 5'5", Weight: 185 DIMENSIONS LVDd 4.5 (3.8-5.7cm) LA (2D) 4.6 (1.9-4.0cm) Aortic Root 3.2 (2.0-3.7cm) LVDs 2.6 (2.5-4.0cm) LA (MM) (1.9-4.0cm) Aortic Cusp Exc 1.5 (1.5-2.0cm) EF (%) 73.0 (55-70%) Rt. Atrium 5.3 (1.9-4.0cm) Asc. Aorta 4.3 cm IVSd 0.7 (0.7-1.1cm) RV (D) (1.8-2.4cm) Mitral Valve Mitral Mitral Stenosis E wave 1.34m/s MV Mean GR. mmHg E/A ratio 0.0 2D MVA cm2 Aortic Valve Aortic Valve Aortic Stenosis V1 1.32m/s AO Mean GR. 9mmHg V2 2.09m/s AO Peak GR. 17mmHg LVOT Diameter 1.8 (1.8-2.4cm) Doppler VICKI 1.61cm2 AI P 1/2 Time 478.87ms Pulmonic Valve V2 1.18m/s Tricuspid Valve TR Velocity 3.28m/s RVSP 51mmHg Other Information Quality : Technically Limited Rhythm : Conclusion LVEF normal at 60-65% Right ventricle size and function normal Moderate left atrial dilation Severely dilated right atrium Moderate tricuspid regurgitation Moderate pulmonary hypertension, 55-60mmgh Mild aortic stenosis Mild anterior pericardial effusion large Left pleural effusion
[2025-02-17] VITALS (11 sets, daily range): BP systolic 120–128; BP diastolic 53–74; PULSE 69–87; RESP 16–20; TEMP 97.5–98.7; O2SAT 90–100
[2025-02-17 05:58] LABS: Hemoglobin 11.6 g/dL (12.2-16.2); Mean Corpuscular Hemoglobin 34.5 pg (28.0-32.0); Nucleated Red Blood Cells % 0.1 %
[2025-02-17 06:00] LABS: Hematocrit 34.7 % (36.0-46.0); Mean Corpuscular Volume 103.3 fL (80.0-100.0)
[2025-02-17 06:13] LABS: Calcium 9.6 mg/dL (8.7-10.4); Chloride 101 mmol/L (98-107); Potassium 3.6 mmol/L (3.5-5.1); Sodium 138 mmol/L (136-145)
[2025-02-17 06:14] LABS: Anion Gap 10 (5-15); Carbon Dioxide 27 mmol/L (20-31)
[2025-02-17 06:19] LABS: BUN/Creatinine Ratio 19.5 (10.0-20.0); Blood Urea Nitrogen 15 mg/dL (9-23); Glucose 148 mg/dL (74-106)
[2025-02-17 06:20] LABS: Magnesium 1.8 mg/dL (1.6-2.6)
[2025-02-17] MEDS: FUROSEMIDE 40 MG/4 ML VIAL IV SCH (09:34)
[2025-02-17] MEDS ORDERED: ALBUAER3 IN (14:06)
[2025-02-17] MEDS ORDERED: METH4PAK PO (14:06)
[2025-02-17] MEDS ORDERED: ALB5IS NEB (14:06)
[2025-02-17] MEDS ORDERED: IPR002IS NEB (14:06)
--- NOTE | 2025-02-17 14:17 | DVHDS2 ---
Discharge Summary Date of Admission Feb 15, 2025 at 13:13 Date of Discharge: Feb 17, 2025 Labs/Diagnostic Data: Laboratory Results Test 02/17/25 05:27 02/16/25 04:58 02/15/25 14:07 02/15/25 11:38 White Blood Count 5.3 10^3/uL (4.4-10.8) Red Blood Count 3.36 10^6/uL (4.0-5.20) Hemoglobin 11.6 g/dL (12.2-16.2) Hematocrit 34.7 % (36.0-46.0) Mean Corpuscular Volume 103.3 fL (80.0-100.0) Mean Corpuscular Hemoglobin 34.5 pg (28.0-32.0) Mean Corpuscular Hemoglobin Concent 33.4 g/dL (32.0-36.0) Red Cell Distribution Width 15.6 % (11.8-14.3) Platelet Count 151 10^3/uL (140-450) Mean Platelet Volume 7.3 fL (6.9-10.8) Neutrophils (%) (Auto) 91.5 % (37.0-80.0) Lymphocytes (%) (Auto) 5.6 % (10.0-50.0) Monocytes (%) (Auto) 2.9 % (0.0-12.0) Eosinophils (%) (Auto) 0.0 % (0.0-7.0) Basophils (%) (Auto) 0.0 % (0.0-2.0) Neutrophils # (Auto) 4.8 10 ^3/uL (1.6-8.6) Lymphocytes # (Auto) 0.3 10 ^3/uL (0.4-5.4) Monocytes # (Auto) 0.2 10 ^3/uL (0-1.3) Eosinophils # (Auto) 0 10 ^3/uL (0-0.8) Basophils # (Auto) 0 10 ^3/uL (0-0.2) Nucleated Red Blood Cells 0.1 % Sodium Level 138 mmol/L (136-145) Potassium Level 3.6 mmol/L (3.5-5.1) Chloride Level 101 mmol/L (98-107) Carbon Dioxide Level 27 mmol/L (20-31) Anion Gap 10 (5-15) Blood Urea Nitrogen 15 mg/dL (9-23) Creatinine 0.77 mg/dL (0.550-1.02) Glomerular Filtration Rate Calc 79 mL/min (>90) BUN/Creatinine Ratio 19.5 (10.0-20.0) Serum Glucose 148 mg/dL (74-106) Calcium Level 9.6 mg/dL (8.7-10.4) Magnesium Level 1.8 mg/dL (1.6-2.6) Hemoglobin A1c 4.7 % A1C (<5.7) Aspartate Amino Transferase (AST) 51 U/L (13-40) Alanine Aminotransferase (ALT) 26 U/L (7-40) Triglycerides Level 67 mg/dL (< 150) Cholesterol Level 136 mg/dL (< 200) LDL Cholesterol 31 mg/dL (< 100) HDL Cholesterol 89 mg/dL (40-59) Thyroid Stimulating Hormone (TSH) 0.74 uIU/mL (0.55-4.78) Prothrombin Time 16.5 sec (9.3-11.8) Prothrombin Time INR 1.63 (0.9-1.15) Urine Color Colorless (Yellow) Urine Clarity Clear (Clear) Urine pH 6.5 (5.0-9.0) Urine Specific [place] 1.006 (1.001-1.035) Urine Protein Negative (Negative) Urine Ketones Negative (Negative) Urine Blood Negative /uL (Negative) Urine Nitrite Negative (Negative) Urine Bilirubin Negative (Negative) Urine Urobilinogen Normal mg/dL (Negative) Urine Leukocyte Esterase Negative /uL (Negative) Urine RBC <1 /hpf (0 - 4) Urine Microscopic WBC < 1 /HPF (0-5) Urine Squamous Epithelial Cells Few /hpf (<5) Urine Bacteria None seen /hpf (None Seen) Urine Glucose Normal mg/dL (Normal) Test 02/15/25 10:29 B-Type Natriuretic Peptide 312.36 pg/mL (0-100) Other Laboratory Tests 02/17/25 05:27 Brief Hx & Hospital Course: 79-year-old female with a known history of chronic AFib, congestive heart failure, COPD/asthma, hypertension, dementia presented to the hospital with the increasing shortness of breaths found to have acute hypoxic respiratory failure suspected secondary to acute COPD exacerbation. Patient denies any known history of congestive heart failure. Patient was seen by Cardiology 2D echo was done which showed ejection fraction of 60% but there was moderate pulmonary hypertension. Patient was eventually given IV diuretics, med nebs Solu-Medrol. Patient is currently stable to be discharged she is saturating more than 92% on room air and requesting to go home as well as her daughter agrees to the same plan. Patient is being discharged under stable condition on a rescue inhaler, she already has nebulizer at home but we will give her breathing treatment for home also Medrol Dosepak. Patient is being discharged under stable condition. Patient has essential tremors were suspected secondary to breathing treatment currently resolved. Condition at Discharge: Stable Final Diagnosis/Problems List 79-year-old female with a known history of chronic AFib, congestive heart failure, COPD/asthma, hypertension, dementia presented to the hospital with the increasing shortness of breaths found to have 1. Acute hypoxic respiratory failure secondary to acute CHF exacerbation as well as acute COPD/asthma exacerbation 2. Acute CHF exacerbation with diastolic dysfunction currently compensated 3. Acute COPD/asthma exacerbation , improved 4. AFib with rate controlled 5. Hypertension 6. Essential tremors 7. Alzheimer dementia 8. Pulmonary hypertension 9. Mild bilateral pleural effusion, not amenable for thoracentesis as per intervention Radiology. Discharge Disposition: Home with Health Services SNF Discharge Will this Physician continue t: No Discharge Instruct/Medications Diet: Cardiac 2g Na,low cholest Activity: No Restrictions, As Tolerated Follow Up/Referral: Please follow up with the PCP in one week Follow up with the Cardiology in 1-2 weeks Follow up with the Pulmonary in 1-2 weeks Medications: Resume home medications, new prescription as prescribed. New Medications: Albuterol Sulfate (Ventolin Mdi) 90 Mcg Ih 90 MCG IN Q4HP PRN, #1 INH Methylprednisolone (Medrol Dosepak) 4 Mg Thomas 4 MG PO UD, #21 TAB UAD Albuterol Sulfate (Ventolin) 2.5 Mg/0.5 Ml Nb 2.5 MG NEB Q4HWA, #60 INH Ipratropium [place] (Ipratropium [place]) 0.02 % Sunitha 0.5 MG NEB Q4HWA, #60 ML Scheduled Albuterol Sulfate (Ventolin), 2.5 MG NEB Q4HWA Ipratropium [place] (Ipratropium [place]), 0.5 MG NEB Q4HWA Methylprednisolone (Medrol Dosepak), 4 MG PO UD Scheduled PRN Albuterol Sulfate (Ventolin Mdi), 90 MCG IN Q4HP PRN Discharge Statement: "Patient was advised to return to the ER or call 911 if any headaches, dizziness, shortness of breath, chest pain, abdominal pain, bleeding, fevers, or worsening of medical condition. Patient was counseled about treatment plan, medications, possible side effects, patientverbalized understanding. All questions were answered to the best of my ability. This discharge took greater then 30 minutes in planning, reviewing documentation, counseling the patient, and discussing with other team members." ASSESSMENT ASSESSMENT Assessment 79-year-old female with a known history of chronic AFib, congestive heart failure, COPD/asthma, hypertension, dementia presented to the hospital with the increasing shortness of breaths found to have 1. Acute hypoxic respiratory failure secondary to acute CHF exacerbation as well as acute COPD/asthma exacerbation 2. Acute CHF exacerbation with diastolic dysfunction currently compensated 3. Acute COPD/asthma exacerbation , improved 4. AFib with rate controlled 5. Hypertension 6. Essential tremors 7. Alzheimer dementia Date of Service: Feb 17, 2025 Billing Provider: DEEJAY PEREZ MD Common Visit Codes: NOT BILLABLE DEEJAY PEREZ MD Feb 17, 2025 14:17
== END 2025-02-17 16:25 | disposition home or self-care (01) | DRG 291 ==
LOC: ER 09:47 → EDBD 09:47 → OVERFLOW 13:13 → TELE-WESTW 17:23
PROVIDERS: ADMIT Internal Medicine; ATTEND Internal Medicine
DX: I11.0 Hypertensive heart disease with heart failure (principal); I50.31 Acute diastolic (congestive) heart failure; J96.01 Acute respiratory failure with hypoxia; J44.1 Chronic obstructive pulmonary disease with (acute) exacerbation; I27.20 Pulmonary hypertension, unspecified; J45.901 Unspecified asthma with (acute) exacerbation; I48.20 Chronic atrial fibrillation, unspecified; G25.0 Essential tremor; E78.5 Hyperlipidemia, unspecified; Z79.01 Long term (current) use of anticoagulants; F02.80 Dementia in other diseases classified elsewhere, unspecified severity, without behavioral disturbance, psychotic disturbance, mood disturbance, and anxiety; F10.10 Alcohol abuse, uncomplicated; G30.9 Alzheimer's disease, unspecified; E87.6 Hypokalemia; Z80.0 Family history of malignant neoplasm of digestive organs; Z82.49 Family history of ischemic heart disease and other diseases of the circulatory system; Z90.710 Acquired absence of both cervix and uterus
CPT/HCPCS: 36415; 71045; 76604; 80048; 80061; 81001; 83036; 83735; 83880; 84443; 84450; 84460; 85025; 85610; 93005; 93306; 94640; 97110; 97116; 97163; 97530; 99291; 99292; G0378